=== PATIENT | female | born 1975 | race Caucasian/White ===

== ENCOUNTER 2022-08-28 14:19 | Emergency (ER) | payer OTHER, SELFPAY ==
[2022-08-28 14:34] VITALS: BP 130/90; PULSE 134; O2SAT 98
[2022-08-28 14:38] VITALS: BP 133/81; PULSE 130; RESP 18; TEMP 36.5; O2SAT 97; BMI 35.9
--- NOTE | 2022-08-28 14:38 | ECG_ITS ---
Test Reason : DIZZINESS Blood Pressure : / mmHG Vent. Rate : 123 BPM Atrial Rate : 123 BPM P-R Int : 096 ms QRS Dur : 076 ms QT Int : 430 ms P-R-T Axes : 000 053 042 degrees QTc Int : 615 ms Sinus tachycardia with short NC Nonspecific ST and T wave abnormality Prolonged QTc Abnormal ECG No previous ECGs available Referred By: Sherly Partida Electronically Signed By:James Sewell
--- NOTE | 2022-08-28 14:38 | ED.GENADULT ---
HPI - General Adult General Stated complaint: Dizziness, nausea Related Data Allergies Allergy/AdvReac Type Severity Reaction Status Date / Time Unable to Assess Allergy Unverified 08/28/22 14:38 Course Course Course Narrative: This is an RME: Additional HPI, ROS, PE not included below will be deferred to primary provider. 47 yo f hx of bipolar do, depression, pancreatitis, HTN presents to the ED via ambulance for evaluation of low blood pressure and high heart rate per home nurse who went to see her for eval of her psych meds. Complaining of dizziness. Plan- labs, urine, ekg, orthos NIHSS- 0 No indication for head imaging
[2022-08-28 14:55] LABS: MANUAL DIFF FLAG NO
[2022-08-28 14:57] LABS: Hematocrit 32.7 % (37.0-47.0); Hemoglobin 9.8 g/dl (12.0-16.0); Imm Gran Abs Auto 0.01 X10*3/uL (0.00-0.03); Imm Gran Pct Auto 0.2 % (0.0-0.4); Lymphocytes Absolute Auto 1.4 X10*3/uL (1.2-4.9); Lymphocytes Percent Auto 33.1 % (20-40); Mean Corpuscular Hemoglobin 24.1 pg (27.0-33.0); Mean Corpuscular Volume 80.3 fL (80.0-98.0); Mean Platelet Volume 9.3 fL (9.4-12.3); Monocytes Absolute Auto 0.4 X10*3/uL (0.1-1.2); Monocytes Percent Auto 8.8 % (2-11); Neutrophils Absolute Auto 2.4 x10*3/uL (2.0-8.3); Neutrophils Percent Auto 57.9 % (45-73); Platelet Count 319 X10*3/uL (160-400); Red Blood Count 4.07 X10*6/uL (4.20-5.50); Red Cell Distribution Width 18.4 % (11.0-16.0); White Blood Count 4.2 X10*3/uL (4.8-10.8)
[2022-08-28 15:14] LABS: COVID-19 Test Negative (Negative); IDNOW Serial# BCCEAD1C
[2022-08-28 15:38] LABS: Troponin-I High Sensitivity 3.6 ng/L (<3.5-17.0)
[2022-08-28 15:42] LABS: Alanine Aminotransferase 30 U/L (0-31); Albumin Level 2.8 g/dL (3.5-5.0); Alkaline Phosphatase 295 U/L (39-117); Anion Gap 13 (12-20); Aspartate Amino Transferase 58 U/L (5-31); Bilirubin Total 0.9 mg/dL (0.0-1.0); Blood Urea Nitrogen < 3 mg/dL (9-16); Calcium 8.8 mg/dL (8.4-10.2); Carbon Dioxide 28 mmol/L (22-29); Chloride 103 mmol/L (96-108); Creatinine Clr Calc Pharmacy 115.4; Estimated Glomerular Filt Rate > 60; Glucose Random 145 mg/dL (60-115); Lipase 8 U/L (8-78); Magnesium 1.6 mg/dL (1.6-2.6); Potassium 2.5 mmol/L (3.3-5.1); Sodium 141 mmol/L (135-145); Total Protein 6.5 g/dL (6.5-8.0)
--- NOTE | 2022-08-28 16:45 | PC.NURSE ---
late entry - pt called to ER by [facility], pt was not in the waiting room. later pt came in and reported she had been sitting outside and questioned why is was taking so long . Security informed the pt that in order to be seen she has to remain in the ER where she can hear her name called and not be sitting outside. pt became irritable, stated that this is fucking stupid, fuck this place . pt then went to the waiting room phone, attempted to call someone, and then left the ER.
== END 2022-08-28 17:35 | disposition left against medical advice (07) ==
PROVIDERS: Physician Assistant; Emergency Provider Emergency Medicine
DX: R03.1 Nonspecific low blood-pressure reading (principal); R42 Dizziness and giddiness; I10 Essential (primary) hypertension; K85.90 Acute pancreatitis without necrosis or infection, unspecified; F32.A Depression, unspecified; Z20.822 Contact with and (suspected) exposure to COVID-19
CPT/HCPCS: 80053; 83690; 83735; 84484; 85025; 87635; 93005; 99283